=== PATIENT | male | born 1980 | race Caucasian/White ===

== ENCOUNTER 2022-05-09 11:25 | Emergency (ER) | payer MEDICAID ==
[~2022-05-09] VITALS: Ht 170.2 cm; Wt 125.6 kg
[2022-05-09] MEDS ORDERED: HYDROcodone-ACET 5/325MG TAB PO ONE (12:45)
[2022-05-09 12:46] LABS: Urine WBC None Seen /hpf (0 - 3)
[2022-05-09 12:51] LABS: Urine Bacteria NONE SEEN /hpf (None Seen); Urine Blood Negative /uL (Negative); Urine Specific Gravity 1.001 (1.001-1.035)
[2022-05-09 12:56] LABS: Basophils # (auto) 0.1 10 ^3/uL (0-0.2); Basophils % (auto) 0.6 % (0.0-2.0); Eosinophils # (auto) 0.1 10 ^3/uL (0-0.8); Hemoglobin 14.8 g/dL (13.5-17.5); Lymphocytes # (auto) 2.2 10 ^3/uL (0.4-5.4); Lymphocytes % (auto) 28.4 % (10.0-50.0); Mean Corpuscular Hemoglobin 30.2 pg (28.0-32.0); Mean Corpuscular Hgb Conc. 33.7 g/dL (32.0-36.0); Mean Corpuscular Volume 89.7 fL (80.0-100.0); Monocytes # (auto) 0.5 10 ^3/uL (0-1.3); Monocytes % (auto) 6.3 % (0.0-12.0); Neutrophils # (auto) 4.9 10 ^3/uL (1.6-8.6); Neutrophils % (auto) 63.7 % (37.0-80.0); Red Blood Cells 4.91 10^6/uL (4.5-5.90); Red Cell Distribution Width 13.7 % (11.8-14.3); White Blood Cell 7.7 10^3/uL (4.4-10.8)
[2022-05-09 13:20] LABS: Albumin 3.6 g/dL (3.4-5.0); BUN/Creatinine Ratio 9.8; Bilirubin, Total 0.5 mg/dL (0.2-1.0); Calcium 8.8 mg/dL (8.5-10.1); Potassium 3.9 mmol/L (3.5-5.1); Total Protein 7.2 g/dL (6.4-8.2)
[2022-05-09 15:51] VITALS: BP 137/88
== END 2022-05-09 16:11 | disposition home or self-care (01) ==
LOC: ER 11:25
DX: R10.11 Right upper quadrant pain (principal); F15.10 Other stimulant abuse, uncomplicated
CPT/HCPCS: 36415; 71046; 76705; 80053; 81001; 83690; 85025

== ENCOUNTER 2022-07-10 11:16 | Emergency (ER) | payer MEDICAID ==
[~2022-07-10] VITALS: Ht 170.2 cm; Wt 122.0 kg
[2022-07-10 11:28] VITALS: BP 111/85
[2022-07-10] MEDS ORDERED: ACETAMINOPHEN 500 MG TAB PO ONE (11:30)
[2022-07-10] MEDS ORDERED: NAP500T PO (15:03)
== END 2022-07-10 20:16 | disposition left against medical advice (07) ==
LOC: ER 11:16
DX: M25.572 Pain in left ankle and joints of left foot (principal); F15.10 Other stimulant abuse, uncomplicated
CPT/HCPCS: 73610

== ENCOUNTER 2022-10-18 16:10 | Emergency (ER) | payer MEDICAID ==
[~2022-10-18] VITALS: Ht 170.2 cm; Wt 125.0 kg
[~2022-10-18 16:10] MED LIST: NAP500T PO
[2022-10-18 16:15] VITALS: BP 142/90
== END 2022-10-19 07:24 | disposition left against medical advice (07) ==
LOC: ER 16:10 → EDBD 16:10 → ER 10-19 07:24
DX: R45.851 Suicidal ideations (principal); Z53.21 Procedure and treatment not carried out due to patient leaving prior to being seen by health care provider

== ENCOUNTER 2022-12-13 14:59 | Emergency (ER) | payer MEDICAID ==
[~2022-12-13] VITALS: Ht 170.2 cm; Wt 116.1 kg
[2022-12-13 16:05] LABS: Urine Bacteria NONE SEEN /hpf (None Seen); Urine Blood Negative /uL (Negative); Urine Hyaline Cast FEW /lpf (0 - 2); Urine Mucus FEW (None Seen); Urine Specific Gravity 1.015 (1.001-1.035); Urine WBC <1 /hpf (0 - 3)
[2022-12-13 16:17] LABS: Basophils # (auto) 0.1 10 ^3/uL (0-0.2); Basophils % (auto) 0.7 % (0.0-2.0); Eosinophils # (auto) 0 10 ^3/uL (0-0.8); Eosinophils % (auto) 0.4 % (0.0-7.0); Hematocrit 45.4 % (41.0-53.0); Hemoglobin 15.4 g/dL (13.5-17.5); Lymphocytes % (auto) 26.1 % (10.0-50.0); Mean Corpuscular Hemoglobin 30.6 pg (28.0-32.0); Mean Corpuscular Hgb Conc. 34.1 g/dL (32.0-36.0); Mean Corpuscular Volume 89.9 fL (80.0-100.0); Monocytes # (auto) 0.7 10 ^3/uL (0-1.3); Monocytes % (auto) 6.2 % (0.0-12.0); Neutrophils # (auto) 7.6 10 ^3/uL (1.6-8.6); Neutrophils % (auto) 66.6 % (37.0-80.0); Nucleated Red Blood Cells % 0.1 %; Red Blood Cells 5.04 10^6/uL (4.5-5.90); Red Cell Distribution Width 13.1 % (11.8-14.3); White Blood Cell 11.4 10^3/uL (4.4-10.8)
[2022-12-13 16:20] LABS: Amphetamine Screen, Urine POSITIVE (NEGATIVE); Barbiturate Scree,Urine NEGATIVE (NEGATIVE); Benzodiazephine Screen, Urine NEGATIVE (NEGATIVE); Cannabinoid Screen, Urine NEGATIVE (NEGATIVE); Cocaine Screen, Urine NEGATIVE (NEGATIVE); Opiate Scree,Urine NEGATIVE (NEGATIVE); Phencyclidine Screen, Urine NEGATIVE (NEGATIVE)
[2022-12-13 16:21] LABS: Albumin 4.3 g/dL (3.4-5.0); Calcium 8.8 mg/dL (8.5-10.1); Potassium 3.7 mmol/L (3.5-5.1)
[2022-12-13 16:26] LABS: BUN/Creatinine Ratio 10.4 (10.0-20.0); Bilirubin, Total 0.9 mg/dL (0.2-1.0)
[2022-12-13 16:57] LABS: Salicylate < 1.7 mg/dL (2.8-20.0)
[2022-12-13 17:00] LABS: Acetaminophen < 2.0 ug/mL (10-30)
[2022-12-14] MEDS ORDERED: hydrOXYzine 25 MG TAB or CAP PO PRN (18:00)
[2022-12-14 19:57] VITALS: BP 115/69
[2022-12-14] MEDS: QUEtiapine FUMARATE 25 MG TAB PO SCH (22:28)
[2022-12-15] MEDS ORDERED: SERTRALINE HCL 50 MG TAB PO SCH (10:00)
[2022-12-15] MEDS: QUEtiapine FUMARATE 25 MG TAB PO SCH (22:00)
== END 2022-12-16 08:32 | disposition left against medical advice (07) ==
LOC: ER 14:59
DX: R45.851 Suicidal ideations (principal); F32.A Depression, unspecified; F20.9 Schizophrenia, unspecified; F15.10 Other stimulant abuse, uncomplicated; F10.10 Alcohol abuse, uncomplicated
CPT/HCPCS: 36415; 74176; 80053; 80307; 80320; 80329; 81001; 83605; 83690; 84484; 85025